=== PATIENT | female | born 1980 | race African-American/Black ===

== ENCOUNTER 2016-12-10 09:11 | Emergency (ER) | payer OTHER ==
--- NOTE | ~2016-12-10 | CR71 ---
[facility]. [facility] A Service of [facility] & [facility] RADIOLOGY TEXT RESULTS PATIENT: HUMBLE FARIAS LOCATION: SED : 82 UNIT #: [id number] AGE: [address]: Geovanny Naidu DO SEX: F ORDER DR: [id number] [address] [address] [id number] E MR#: [id number] Acc #: [id number] NAME: HUMBLE FARIAS : 1980 SEX: F STUDY DATE/TIME: 12/10/2016 10:31 UNIT: SED ROOM: STUDY DESCRIPTION: CR Chest Single View Attending Physician: Geovanny Naidu Ordering Physician: Marty Elam M.D. Primary Care Physician: Liang Hester M.D. MEDICAL IMAGING REPORT This report is preliminary unless electronic signature is present. EXAM Portable chest radiograph. DATE OF EXAM 12/10/2016 INDICATION Cold symptoms for 2 days. Coughing. FINDINGS Patient does appear to have some cardiomegaly, although, I am not convinced I can see any vascular congestion. There is bibasilar atelectasis right greater than left, although, no definite acute infiltrate is seen. There is no pneumothorax or pleural effusion. Dictated by... Jazmin Mora M.D. THIS IS AN ELECTRONICALLY VERIFIED REPORT Jazmin Mora M.D. at 12/11/2016 1:26 PM AFF/jt TD: 12/10/2016 23:27 JOB #: [id number] MEDICAL IMAGING REPORT
--- NOTE | ~2016-12-10 | CR63 ---
[facility] A Service of [facility] & [facility] RADIOLOGY TEXT RESULTS PATIENT: HUMBLE FARIAS LOCATION: SED : 82 UNIT #: [id number] AGE: [address]: Geovanny Naidu DO SEX: F ORDER DR: [id number] [address] [address] [id number] E MR#: [id number] Acc #: [id number] NAME: HUMBLE FARIAS : 1980 SEX: F STUDY DATE/TIME: 12/10/2016 9:55 UNIT: SED ROOM: STUDY DESCRIPTION: CR Chest 2 View Attending Physician: Geovanny Naidu Ordering Physician: Marty Elam M.D. Primary Care Physician: Liang Hester M.D. MEDICAL IMAGING REPORT This report is preliminary unless electronic signature is present. EXAM Chest x-ray HISTORY Cough, vomiting for 2 days. Sickle symptoms chest pain, congestion and fever. COMMENT 2 views of the chest attempted. The study is limited by the patient's obesity such that the overlying skin folds partly obscure the parenchymal markings. There is no pleural effusion. The heart size is top normal. The lung volumes are low. There is a perihilar opacity likely on the right. In light of symptoms this is worrisome for pneumonia. Clinical correlation follow up is recommended. If a standing PA chest x-ray could be obtained I believe this would be helpful and better seeing the lungs given the overlying tissues. IMPRESSION There is considerable limitation of the frontal view by the patient's morbid obesity and skin folds. If it is possible the patient would be best served with a standing PA chest x-ray. At this time I am concerned for a true confluent infiltrate in the right perihilar region. Please correlate for clinical evidence for aspiration or pneumonia and follow up to complete clearing recommended. Dictated by... Lisa Shepard M.D. THIS IS AN ELECTRONICALLY VERIFIED REPORT Lisa Shepard M.D. at 12/11/2016 6:19 AM YOAN/fawn [facility] A Service of [facility] & [facility] RADIOLOGY TEXT RESULTS PATIENT: HUMBLE FARIAS LOCATION: SED : 82 UNIT #: [id number] AGE: [address]: Geovanny Naidu DO SEX: F ORDER DR: TD: 12/10/2016 23:16 JOB #: [id number] MEDICAL IMAGING REPORT
[~2016-12-10 09:11] MED LIST: ALPRAZOLAM; AMOXICILLIN; METFORMIN
[2017-02-09] MEDS ORDERED: ALPRAZOLAM (16:47)
[2017-02-09] MEDS ORDERED: ALBUTEROL20 ml (16:47)
[2017-02-09] MEDS ORDERED: BUSPAR (16:48)
[2017-02-09] MEDS ORDERED: SYMBICORT80 (16:48)
== END 2016-12-10 11:35 | disposition home or self-care (01) ==
LOC: SED 09:11
DX: J45.901 Unspecified asthma with (acute) exacerbation (principal); E11.9 Type 2 diabetes mellitus without complications
CPT/HCPCS: 71010; 71020; 94640; 99284

== ENCOUNTER 2016-12-11 20:13 | Emergency (ER) | payer OTHER ==
[2017-02-09] MEDS ORDERED: ALBUTEROL20 ml (16:47)
[2017-02-09] MEDS ORDERED: ALPRAZOLAM (16:47)
[2017-02-09] MEDS ORDERED: BUSPAR (16:48)
[2017-02-09] MEDS ORDERED: SYMBICORT80 (16:48)
== END 2016-12-11 20:23 | disposition home or self-care (01) ==
LOC: SED 20:13
DX: J20.9 Acute bronchitis, unspecified (principal)
CPT/HCPCS: 94640; 99284

== ENCOUNTER 2017-01-25 20:40 | Emergency (ER) | payer OTHER ==
[2017-02-09] MEDS ORDERED: ALPRAZOLAM (16:47)
[2017-02-09] MEDS ORDERED: ALBUTEROL20 ml (16:47)
[2017-02-09] MEDS ORDERED: SYMBICORT80 (16:48)
[2017-02-09] MEDS ORDERED: BUSPAR (16:48)
== END 2017-01-25 20:55 | disposition home or self-care (01) ==
LOC: CED 20:40
DX: Z53.21 Procedure and treatment not carried out due to patient leaving prior to being seen by health care provider (principal)

== ENCOUNTER 2017-02-09 16:59 | Emergency (ER) | payer OTHER ==
--- NOTE | ~2017-02-09 | CR63 ---
[facility]. [facility] A Service of [facility] & [facility] RADIOLOGY TEXT RESULTS PATIENT: HUMBLE FARIAS LOCATION: SED : 82 UNIT #: [id number] AGE: [address]: YOSSI ANAND SEX: F ORDER DR: [id number] [address] [address] [id number] E MR#: [id number] Acc #: [id number] NAME: HUMBLE FARIAS : 1980 SEX: F STUDY DATE/TIME: 02/09/2017 17:10 UNIT: SED ROOM: STUDY DESCRIPTION: CR Chest 2 View Attending Physician: Yossi Anand Ordering Physician: Yossi Anand Primary Care Physician: Liang Hester M.D. MEDICAL IMAGING REPORT This report is preliminary unless electronic signature is present. EXAM PA and lateral chest 02/09/2017 INDICATIONS Left-sided pain, cough, shortness of air for 2 weeks. COMPARISON 12/10/2016. FINDINGS A PA and lateral view of the chest were obtained. The heart size and vascularity are normal. The lungs are clear and the bones are unremarkable. IMPRESSION No active disease Dictated by... Terrance Fernández M.D. THIS IS AN ELECTRONICALLY VERIFIED REPORT Terrance Fernández M.D. at 02/10/2017 3:28 PM MALCOLM/fawn TD: 02/09/2017 20:11 JOB #: [id number] MEDICAL IMAGING REPORT Page 1 of 1
[~2017-02-09 16:59] MED LIST changes: +ALBUTEROL20 ml; +BUSPAR; +SYMBICORT80
== END 2017-02-09 17:40 | disposition home or self-care (01) ==
LOC: SED 16:59
DX: J45.21 Mild intermittent asthma with (acute) exacerbation (principal); M94.0 Chondrocostal junction syndrome [Tietze]; B19.20 Unspecified viral hepatitis C without hepatic coma; Z98.890 Other specified postprocedural states
CPT/HCPCS: 71020; 99283

== ENCOUNTER 2017-04-04 10:11 | Emergency (ER) | payer OTHER ==
--- NOTE | ~2017-04-04 | CT71 ---
[facility] A Service [facility] RADIOLOGY TEXT RESULTS PATIENT: HUMBLE FARIAS LOCATION: SED : 82 UNIT #: [id number] AGE: [address]: Kristin Phillips MD SEX: F ORDER DR: [id number] [address] [address] [id number] E MR#: [id number] Acc #: [id number] NAME: HUMBLE FARIAS : 1980 SEX: F STUDY DATE/TIME: 04/04/2017 13:33 UNIT: SED ROOM: STUDY DESCRIPTION: CT Head Wo Contrast Attending Physician: Kristin Phillips M.D. Ordering Physician: Kristin Phillips M.D. Primary Care Physician: Liang Hester M.D. MEDICAL IMAGING REPORT This report is preliminary unless electronic signature is present. EXAM Head CT no contrast 04/04/2017. INDICATIONS 36-year-old female with dizziness and a headache for 4 days, no known injury. History of hepatitis C. TECHNIQUE Noncontrast CT of the brain was performed. We have no comparisons. FINDINGS CT brain. This CT exam was performed with one or more of the following radiation dose reduction techniques: automatic exposure control, adjustment of mA and/or kV according to patient size, and iterative reconstruction. Sulci and ventricles unremarkable. No midline shift. No evidence of acute intracranial hemorrhage. There is no mass, mass effect or edema to suggest acute infarct and no extraaxial fluid collections are present. There is probable volume averaging through a prominent sulcus in the right temporal parietal region. Globes are intact. The bones are intact. There is mild ethmoid and sphenoid sinus disease that appears chronic. IMPRESSION 1. Negative noncontrast CT the brain. 2. Mild chronic-appearing ethmoid and sphenoid sinus disease. Dictated by... Marty Phelps M.D. [facility] A Service of [facility] RADIOLOGY TEXT RESULTS PATIENT: HUMBLE FARIAS LOCATION: SED : 82 UNIT #: [id number] AGE: [address]: Kristin Phillips MD SEX: F ORDER DR: THIS IS AN ELECTRONICALLY VERIFIED REPORT Marty Phelps M.D. at 04/05/2017 9:13 AM Cherie TD: 04/04/2017 20:51 JOB #: [id number] MEDICAL IMAGING REPORT Page 1 of 1
--- NOTE | ~2017-04-04 | EKG ---
PATIENT: HUMBLE FARIAS UNIT #: [id number] Ventricular Rate: 71 BPM Atrial Rate: 71 BPM P-R Interval: 144 ms QRS Duration: 84 ms Q-T Interval: 394 ms QTC Calculation(Bezet): 428 ms P [place]: -36 degrees Calculated R [place]: 4 degrees Calculated T [place]: -10 degrees Diagnosis Line: sinus Diagnosis Line: Nonspecific ST abnormality Diagnosis Line: Abnormal ECG Diagnosis Line: No previous ECGs available Diagnosis Line: Confirmed by PAIGE JEFFREY MD ([id number]) on Diagnosis Line: 04/06/2017 4:49:03 PM INTERPRETING MD: RACHELE TERRAZAS
[2017-04-04] MEDS ORDERED: ZYRTEC10 M2 PO (10:23)
[2017-04-04 11:02] LABS: URINE APPEARANCE CLEAR; URINE BILIRUBIN NEG (NEG); URINE BLOOD NEG (NEG); URINE COLOR YELLOW; URINE GLUCOSE NEG (NORM); URINE KETONE NEG (NEG); URINE LEUKOCYTE ESTERASE NEG (NEG); URINE NITRATE NEG (NEG); URINE PH 5.5 (5-8); URINE PROTEIN NEG (NEG); URINE SOURCE CLEAN CATCH; URINE UROBILINOGEN 0.2 MG/DL (NORM)
[2017-04-04 11:04] LABS: MICRO INDICATED? NO
[2017-04-04 11:15] LABS: BASOPHIL# 0.1 X10e3 (0-0.3); BASOPHIL% 1.3 % (0-2.5); EOSINOPHIL# 0.5 X10e3 (0-0.7); EOSINOPHIL% 10.5 % (0.0-7.0); HEMATOCRIT 34.8 % (35.0-45.0); LYMPHOCYTE# 2.2 X10e3 (1.0-3.5); LYMPHOCYTE% 50.3 % (17.0-45.0); MEAN CELL VOLUME 75.6 FL (83-96); MEAN CORPUSCULAR HEMOGLOBIN 23.8 PG (28-34); MEAN CORPUSCULAR HGB CONC 31.5 g/dL (30-36); MEAN PLATELET VOLUME 9.5 FL (6.5-11.5); MONOCYTE# 0.3 X10e3 (0-1.0); NEUTROPHIL# 1.4 X10e3 (1.5-7.1); NEUTROPHIL% 31.9 % (40-75); PLATELET COUNT 182 X10e3 (140-420); RED CELL DISTRIBUTION WIDTH 18.9 % (11.0-15.5); WHITE BLOOD COUNT 4.3 X10e3 (4.0-10.5)
[2017-04-04 11:19] LABS: DIFF IND NO
[2017-04-04 11:34] LABS: ALBUMIN SERUM 3.6 g/dL (3.5-5.0); ALKALINE PHOSPHATASE 46 U/L (32-92); ALT (SGPT) 14 U/L (10-40); AST (SGOT) 18 U/L (10-42); BILIRUBIN,TOTAL 0.4 mg/dL (0.2-2.0); BLOOD UREA NITROGEN 10 mg/dL (9-23); BUN/CREATININE RATIO 14.28; CALCIUM SERUM 8.6 mg/dL (8.4-10.2); CARBON DIOXIDE 24 mmol/L (22-31); CHLORIDE 104 mmol/L (100-111); CREATININE SERUM 0.7 mg/dL (0.6-1.4); GLUCOSE FASTING 86 mg/dL (70-110); POTASSIUM 3.7 mmol/L (3.5-5.1); PROTEIN TOTAL SERUM 7.4 g/dL (6.0-8.3); SODIUM 134 mmol/L (135-145)
[2017-04-04 11:37] LABS: BILIRUBIN, DIRECT <0.1 mg/dL (0.0-0.2); BILIRUBIN,INDIRECT 0.3 mg/dL (0.0-0.9)
[2017-04-04 12:24] LABS: POC - CKMB 1.9 ng/mL (0.0-7.9); POC - TROPONIN <0.05 ng/mL (<=0.05)
== END 2017-04-04 15:00 | disposition home or self-care (01) ==
LOC: SED 10:11
PROVIDERS: Student in an Organized Health Care Education/Training Program
DX: R55 Syncope and collapse (principal); R51 Headache; E86.0 Dehydration; F41.9 Anxiety disorder, unspecified
CPT/HCPCS: 36415; 70450; 80048; 80076; 81003; 82553; 84484; 84703; 85025; 93005; 94640; 96361; 96374; 96375; 99284; J1200; J1885; J2405